=== PATIENT | female | born 1940 | race Caucasian/White ===

== ENCOUNTER → 2016-12-28 | Outpatient (CLI) | payer OTHER, BC ==
[~2016-12-28] VITALS: Ht 156.2 cm; Wt 60.8 kg
[~2016-12-28] MED LIST: BENTYL10 MG PO; HYOSCYAMINE0.375 M4 PO; KEFLEX500 MG PO; LATANOPROST2.5 ML BOTH EYES; LEVOTHYROXINE100 MCG PO; VITAMIN D-3 401 EACH PO
== END | disposition home or self-care (01) ==
LOC: AMB 11:27
PROC: 0DJD8ZZ Inspection of Lower Intestinal Tract, Via Natural or Artificial Opening Endoscopic (ICD-10-PCS; principal; 2016-12-28)
DX: K57.90 Diverticulosis of intestine, part unspecified, without perforation or abscess without bleeding (principal); R19.4 Change in bowel habit; R10.9 Unspecified abdominal pain; E03.9 Hypothyroidism, unspecified; M85.80 Other specified disorders of bone density and structure, unspecified site
CPT/HCPCS: 93005; B4087; J3010